=== PATIENT | male | born 1970 | race Caucasian/White ===

== ENCOUNTER 2017-01-21 13:59 | Emergency (ER) | payer SELFPAY ==
[2017-01-21] MEDS ORDERED: methylPREDNISolone SODIUM SUC 125 MG/2 ML VIAL IV ONE (14:08)
[2017-01-21] MEDS ORDERED: EPINEPHrine HCL AMP 1 MG/ML AMP SUBCU ONE (14:08)
[2017-01-21] MEDS ORDERED: diphenhydrAMINE HCL 50 MG/ML VIAL IV ONE ×3 (14:09→14:56)
--- NOTE | 2017-01-21 14:27 | ED.PDOC ---
History of Present Illness - General Chief Complaint: Allergic Reaction Stated Complaint: Allergic reaction Time Seen by Provider: 01/21/17 14:07 Source: patient, RN notes reviewed, Vital Signs reviewed Exam Limitations: no limitations - History of Present Illness Initial Comments: Patient comes in with c/o of an allergic reaction. He used a new hair dye 2 days ago and has itchy, red rash on scalp and chest along with swelling around his eyes. He has just been taking Benadryl at home but it kept getting worse. No throat swelling or difficulty breathing. Timing/Duration: getting worse - over past 2 days Severity: severe Improving Factors: nothing - Tried Benadryl @ home Worsening Factors: nothing Associated Symptoms: denies symptoms Allergies/Adverse Reactions: Allergies Penicillins Allergy (Verified 03/21/14 17:57) Home Medications: Ambulatory Orders Mupirocin 2 % [Bactroban] 22 gm EX BID #1 tube 03/21/14 Sulfamethoxazole-Trimethoprim [Bactrim Ds 800-160 mg] 1 tab PO BID #20 tab 03/21 Methylprednisolone [Medrol Dose Umer] 4 mg PO DAILY #1 pack 01/21/17 Review of Systems - Review of Systems Constitutional: States: no symptoms reported EENTM: States: other - swelling of eyelids with itching. Denies: throat swelling, mouth swelling Respiratory: States: no symptoms reported. Denies: short of breath Cardiology: States: no symptoms reported Gastrointestinal/Abdominal: States: no symptoms reported Musculoskeletal: States: no symptoms reported Skin: States: see HPI Neurological: States: no symptoms reported All other Systems: No Change from Baseline Past Medical History (General) - Patient Medical History Hx Seizures: No Hx Stroke: No Hx Dementia: No Hx Asthma: No Hx of COPD: No Hx Cardiac Disorders: No Hx Congestive Heart Failure: No Hx Pacemaker: No Hx Hypertension: No Hx Thyroid Disease: No Hx Diabetes: No Hx Gastroesophageal Reflux: No Hx Renal Disease: No Hx Cancer: No Hx of HIV: No Hx Hepatitis C: No Hx MRSA: Yes - Arm Wound 2014 MRSA Source:: Wound - Vaccination History Hx Tetanus, Diphtheria Vaccination: No Hx Influenza Vaccination: No Hx Pneumococcal Vaccination: No - Social History Hx Tobacco Use: Yes Hx Chewing Tobacco Use: Yes - 1 can/ 2 weeks Hx Alcohol Use: Yes - beer; 1/2 case 2-3 weeks Hx Substance Use: No Hx Substance Use Treatment: No Hx Depression: No Hx Physical Abuse: No Hx Emotional Abuse: No Hx Suspected Abuse: No - Female History Patient : No Family Medical History - Family History Father Living Status: Still Living Hx Family Hypertension: Yes Hx Family Diabetes: Yes Physical Exam - Physical Exam General Appearance: Alert, Comfortable, Well Developed, Well Groomed, Well Hydrated, Well Nourished Eye Exam: bilateral other - Severe edema of eyelids and periorbital area Ears, Nose, Throat: hearing grossly normal, normal pharynx Neck: supple Respiratory: lungs clear, normal breath sounds, no respiratory distress, no accessory muscle use Cardiovascular/Chest: regular rate, rhythm, no gallop, no JVD, no murmur Extremity: normal range of motion, normal inspection Neurologic: alert, normal mood/affect, oriented x 3 Skin Exam: rash - Erythematous, urticarial rash over scalp, forehead, back of neck and upper chest. Progress - Progress Progress: 01/21/17 14:54 Patient reports itching is much better after Benadryl 25mg IV, [id number] 125mg IV and Epi 0.3mg SQ. Eye edema is improving and areas of urticaria are a light pink instead of bright red. Will give another 25mg of Benadryl and d/c home with Rx for Medrol dose pack and instructions to take Benadryl 50mg PO Q6 hours prn. Departure - Departure Clinical Impression: Urticaria Angioedema Qualifiers: Encounter type: initial encounter Qualified Code(s): T78.3XXA - Angioneurotic edema, initial encounter Time of Disposition: 14:56 Disposition: Discharge to Home or Self Care Condition: Good Departure Forms: ED Discharge - Pt. Copy, Patient Portal Self Enrollment Instructions: DI for General Allergic Reactions, DI for Angioedema Diet: resume usual diet Activity: increase activity as tolerated Prescriptions: Methylprednisolone [Medrol Dose Umer] 4 mg PO DAILY #1 pack Home Medications: Ambulatory Orders Mupirocin 2 % [Bactroban] 22 gm EX BID #1 tube 03/21/14 Sulfamethoxazole-Trimethoprim [Bactrim Ds 800-160 mg] 1 tab PO BID #20 tab 03/21 Methylprednisolone [Medrol Dose Umer] 4 mg PO DAILY #1 pack 01/21/17 Additional Instructions: Take Benadryl 50mg every 6 hours as needed. Start steroid dose pack tomorrow morning.
[2017-01-21 14:44] VITALS: TEMP 99.1
[2017-01-21 15:14] VITALS: BP 128/78; O2SAT 96
== END 2017-01-21 15:08 | disposition home or self-care (01) ==
LOC: ER 13:59
DX: T78.3XXA Angioneurotic edema, initial encounter (principal); Z88.0 Allergy status to penicillin; Z87.891 Personal history of nicotine dependence
CPT/HCPCS: J1200; J2930

== ENCOUNTER 2017-06-15 16:54 | Emergency (ER) | payer OTHER ==
--- NOTE | 2017-06-15 17:10 | ED.PDOC ---
History of Present Illness - General Chief Complaint: Drug or Alcohol Abuse Stated Complaint: medical clearance Time Seen by Provider: 06/15/17 16:56 Source: patient, other - [facility] Exam Limitations: no limitations - History of Present Illness Initial Comments: Dalton Stewart 46 y/o male brought by [employer] lamin[employer] deputy [place] his side but when they let him stood up and walk was found to have unsteady gate speech was garbled stating to sheriff kapoor that he had been drinking vodka since this morning.Stated he drinks alcohol everyday mostly hard drinks. At the ER room talking to sheriff viera.Denies illicit drug use. Timing/Duration: 1-3 hours Severity: moderate Improving Factors: nothing Worsening Factors: nothing Associated Symptoms: denies symptoms Allergies/Adverse Reactions: Allergies Penicillins Allergy (Verified 06/15/17 16:59) Home Medications: Ambulatory Orders NK [NK] 06/15/17 Review of Systems - Review of Systems Constitutional: States: no symptoms reported EENTM: States: no symptoms reported Respiratory: States: no symptoms reported Cardiology: States: no symptoms reported Gastrointestinal/Abdominal: States: no symptoms reported Genitourinary: States: no symptoms reported Musculoskeletal: States: no symptoms reported Skin: States: no symptoms reported Endocrine: States: see HPI All other Systems: Reviewed and Negative, No Change from Baseline Past Medical History (General) - Patient Medical History Hx Seizures: No Hx Stroke: No Hx Dementia: No Hx Asthma: No Hx of COPD: No Hx Cardiac Disorders: No Hx Congestive Heart Failure: No Hx Pacemaker: No Hx Hypertension: No Hx Thyroid Disease: No Hx Diabetes: No Hx Gastroesophageal Reflux: No Hx Renal Disease: No Hx Cancer: No Hx of HIV: No Hx Hepatitis C: No Hx MRSA: Yes - Arm Wound 2014 Hx Other PMH: Yes - chronic alcoholism MRSA Source:: Wound Surgical History: no surgical history - Vaccination History Hx Tetanus, Diphtheria Vaccination: No Hx Influenza Vaccination: No Hx Pneumococcal Vaccination: No - Social History Hx Tobacco Use: Yes Hx Chewing Tobacco Use: Yes - 1 can/ 2 weeks Hx Alcohol Use: Yes - beer; 12pk daily Hx Substance Use: No Hx Substance Use Treatment: No Hx Depression: No Hx Physical Abuse: No Hx Emotional Abuse: No Hx Suspected Abuse: No - Female History Patient : No Family Medical History - Family History Father Living Status: Still Living Hx Family Hypertension: Yes Hx Family Diabetes: Yes Physical Exam - Physical Exam General Appearance: Alert, Comfortable, No apparent distress, Other - cooperative Eye Exam: bilateral normal Ears, Nose, Throat: hearing grossly normal Neck: non-tender, supple Respiratory: chest non-tender, lungs clear, normal breath sounds, no respiratory distress Cardiovascular/Chest: normal peripheral pulses, regular rate, rhythm, no murmur Peripheral Pulses: radial,right: 2+, radial,left: 2+ Gastrointestinal/Abdominal: non tender, soft, no organomegaly Back Exam: no CVA tenderness, no vertebral tenderness Extremity: no pedal edema, no calf tenderness Neurologic: no motor/sensory deficits, alert, oriented x 3 Skin Exam: normal color, warm/dry Lymphatic: no adenopathy Progress - Progress Progress: 06/15/17 18:34 Vital Signs 06/15/17 16:54 Temperature 96.7 F L Pulse Rate [ 89 pulse ox] Respiratory 20 Rate Blood Pressure 134/68 [pulse ox] O2 Sat by Pulse 94 L Oximetry 06/15/17 18:35 Had been talking to pss delivery professional since he was in er - Results/Orders Results/Orders: 06/15/17 17:14 URINE DRUG SCREEN, 7 ASSAY Stat 06/15/17 18:29 URINALYSIS Stat Laboratory Results - last 24 hr 06/15/17 06/15/17 06/15/17 17:55 17:55 17:55 WBC 8.7 RBC 5.18 Hgb 16.1 Hct 46.7 MCV 90.2 MCH 31.2 H MCHC 34.6 RDW 13.8 Plt Count 221 MPV 9.1 Absolute Neuts (auto) 5.30 Absolute Lymphs (auto) 2.40 Absolute Monos (auto) 0.70 Absolute Eos (auto) 0.20 Absolute Basos (auto) 0.10 Neutrophils % 60.5 Lymphocytes % 27.7 Monocytes % 7.6 Eosinophils % 2.8 Basophils % 1.4 Sodium 138 Potassium 3.8 Chloride 106 Carbon Dioxide 22 Anion Gap 13.8 BUN 16 Creatinine 0.87 BUN/Creatinine Ratio 18.4 Random Glucose 100 Serum Osmolality 276.9 Calcium 9.3 Total Bilirubin 1.0 GGT 15 AST 30 ALT 35 Alkaline Phosphatase 64 Serum Total Protein 7.8 Albumin 4.7 Globulin 3.1 Albumin/Globulin Ratio 1.5 Ethyl Alcohol 301.50 H* ethyl alcohol level on downward trend and he will be booked in the [facility] longterm for public intoxication and pss delivery professional will bring him to [facility] for further evaluation /treatment of alcohol and substance abuse problem - EKG/XRAY/CT CT Ordered: Yes - head/c- spine no acute abnormalities noted Departure - Departure Clinical Impression: Alcohol abuse, Methamphetamine abuse, episodic Alcohol intoxication Qualifiers: Complication of substance-induced condition: uncomplicated Qualified Code(s): F10.920 - Alcohol use, unspecified with intoxication, uncomplicated Time of Disposition: 20:24 Disposition: Group Home Departure Forms: ED Discharge - Pt. Copy, Patient Portal Self Enrollment Instructions: DI for Drug Abuse and Drug Addiction, DI for Alcohol Abuse and Alcoholism Home Medications: Ambulatory Orders NK [NK] 06/15/17
[2017-06-15] MEDS ORDERED: THIAMINE HCL INJ 100 MG/ML VIAL ONE (17:24)
[2017-06-15] MEDS ORDERED: SODIUM CHLORIDE 0.9% 1000ML 1,000 ML ONE (17:24)
[2017-06-15] MEDS ORDERED: MULTIPLE VITAMIN 10 ML VIAL ONE (17:25)
[2017-06-15] MEDS ORDERED: MULTIPLE VITAMIN INJ 10 ML, THIAMINE HCL INJ 100 MG in SODIUM CHLORIDE 0.9% 1000ML 1,00... IVS ONE (17:30)
--- NOTE | 2017-06-15 18:04 | CT ---
EXAM DESCRIPTION: Head CLINICAL HISTORY: ams COMPARISON: None Available. TECHNIQUE: Contiguous axial images of the brain were obtained without the administration of intravenous contrast. This exam was performed according to our departmental dose-optimization program, which includes automated exposure control, adjustment of the mA and/or kV according to patient size and/or use of iterative reconstruction technique. FINDINGS: Multiple images are degraded by motion. There is no discrete acute intracranial hemorrhage or mass effect. Ventricular system is within normal limits. There is adequate pacheco-white matter differentiation. There is no skull fracture. Abnormal opacification of the paranasal sinuses compatible with chronic sinusitis changes. IMPRESSION: Multiple images are degraded by motion. There is no discrete acute intracranial hemorrhage or mass effect. A repeat examination recommended when patient is able to cooperate as indicated. Electronically signed by: Nacho Schreiber MD 06/15/2017 6:03 PM [facility]
--- NOTE | 2017-06-15 18:08 | CT ---
EXAM DESCRIPTION: CT CERVICAL SPINE CLINICAL HISTORY: ams COMPARISON: None Available. TECHNIQUE: Contiguous axial images of the cervical spine were obtained followed by reconstruction images.This exam was performed according to our departmental dose-optimization program, which includes automated exposure control, adjustment of the mA and/or kV according to patient size and/or use of iterative reconstruction technique. FINDINGS: There is no acute fracture or subluxation. The prevertebral soft tissues are within normal limits. There is left neural foramina narrowing at C3-C4, and bilateral neural foramina narrowing at C4-C5, C5-C6 and C6-C7. There is a central disc protrusion at C3-C4 measuring approximately 2.5 mm in AP diameter. IMPRESSION: No acute fracture or subluxation. Degenerative changes. Small central disc protrusion at C3-C4. Electronically signed by: Nacho Schreiber MD 06/15/2017 6:07 PM [facility]
[2017-06-15] MEDS ORDERED: BACLOFEN 10 MG TAB PO ONE (20:18)
[2017-06-15 20:49] VITALS: BP 100/68; TEMP 98.4; O2SAT 96
== END 2017-06-15 20:49 ==
LOC: ER 16:54
DX: F10.129 Alcohol abuse with intoxication, unspecified (principal); F19.90 Other psychoactive substance use, unspecified, uncomplicated; Y90.8 Blood alcohol level of 240 mg/100 ml or more
CPT/HCPCS: 36415; 70450; 72125; 80053; 80307; 80320; 81001; 82977; 85025; J3411; J7030